=== PATIENT | male | born 1970 | race Caucasian/White ===

== ENCOUNTER → 2018-09-06 | Outpatient (CLI) | payer OTHER ==
[~2018-09-06] MED LIST: PROHANCE 279.3MG/ML 15ML VIAL (A9576) As Ordered ONE; PROHANCE 279.3MG/ML 5ML VIAL (A9576) As Ordered ONE
--- NOTE | 2018-09-06 15:08 | REP ---
MRI BRAIN WITHOUT CONTRAST: HISTORY: Headache. CONTRAST: ProHance, 17 mL COMPARISON: 05/22/2018 There are no enhancing lesions. There are no areas of abnormal enhancement. IMPRESSION: There is no abnormal enhancement. Electronically Signed by Bryan Pham MD 09/06/2018 03:11 P
== END ==
LOC: M RAD 13:52
PROVIDERS: ATTEND Family Medicine
DX: R51 Headache (principal); R41.3 Other amnesia; H53.9 Unspecified visual disturbance; Z87.820 Personal history of traumatic brain injury
CPT/HCPCS: 70552; A9576